=== PATIENT | male | born 1990 ===

== ENCOUNTER 2018-03-15 17:09 | Emergency (ER) | payer MEDICAID, OTHER ==
[2018-03-15 17:28] VITALS: BP 119/73; PULSE 78; RESP 18; TEMP 98; O2SAT 98
--- NOTE | 2018-03-15 18:27 | C.PDOC ---
History Of Present Illness 27-year-old male, presents to the emergency department with complaints of pain to right hand since last night. Patient states he was boxing last night, and hurt his hand. He notes taking an Aleve with minimal relief, prompting visit. Patient denies numbness/weakness, nausea/vomiting, fever, chills, or any other associated symptoms. No other complaints at this time. Time Seen by Provider: 03/15/18 17:28 Chief Complaint (Nursing): Finger,Hand,&Wrist History Per: Patient History/Exam Limitations: no limitations Past Medical History Reviewed: Historical Data, Nursing Documentation, Vital Signs Vital Signs: Last Vital Signs Temp 98 F 03/15/18 17:19 Pulse 78 03/15/18 17:19 Resp 18 03/15/18 17:19 BP 119/73 03/15/18 17:19 Pulse Ox 98 03/15/18 17:19 - Medical History PMH: Anxiety (MARIJUANA DEPENDENCE) Denies: Chronic Kidney Disease Surgical History: Hernia Repair, Tonsillectomy Family History: States: No Known Family Hx - Social History Hx Alcohol Use: Yes Hx Substance Use: No Review Of Systems Constitutional: Negative for: Fever Gastrointestinal: Negative for: Vomiting Musculoskeletal: Positive for: Hand Pain Neurological: Negative for: Weakness, Numbness Physical Exam - Physical Exam Appears: Non-toxic, No Acute Distress Skin: Warm, Dry, No Rash Head: Atraumatic Eye(s): bilateral: Normal Inspection Nose: Normal Oral Mucosa: Moist Lips: Normal Appearing Neck: Normal ROM Extremity: Tenderness, Capillary Refill (<2 seconds), No Deformity, Other (right hand +tenderness and swelling) Pulses: Left Radial: Normal, Right Radial: Normal Neurological/Psych: Oriented x3, Normal Speech ED Course And Treatment O2 Sat by Pulse Oximetry: 98 Pulse Ox Interpretation: Normal (RA) Progress Note: Hand xray is negative for fracture. Velcro wrist splint was applied by educational technologist and checked by me. Disposition - Disposition Referrals: Lindsey Walton MD [Staff Provider] - Disposition: HOME/ ROUTINE Disposition Time: 18:00 Condition: STABLE Additional Instructions: Follow up with the Hand doctor within 1-2 days without fail. Return if worsened. Prescriptions: Ibuprofen [Motrin] 600 mg PO TID #21 tab Instructions: Contusion (DC) Forms: [facility] (Korean), Work Excuse - Clinical Impression Clinical Impression: Hand contusion - Scribe Statement The provider has reviewed the documentation as recorded by the Scribe (Kasey Cannon) All medical record entries made by the Scribe were at my direction and personally dictated by me. I have reviewed the chart and agree that the record accurately reflects my personal performance of the history, physical exam, medical decision making, and the department course for this patient. I have also personally directed, reviewed, and agree with the discharge instructions and disposition.
--- NOTE | 2018-03-16 10:09 | RAD ---
PROCEDURE: Right Hand Radiographs. HISTORY: hand injury pain to 3-5 MCP and 3rd prox phalanx COMPARISON: None. FINDINGS: BONES: Bone alignment and mineralization are normal. There is no acute displaced fracture or bone destruction. There is an old fracture deformity in the 4th metacarpal. JOINTS: The joint spaces are preserved. SOFT TISSUES: Normal. OTHER FINDINGS: None. IMPRESSION: No acute displaced fracture or dislocation.
== END 2018-03-15 18:45 | disposition home or self-care (01) ==
LOC: C.ER 17:09
DX: S60.221A Contusion of right hand, initial encounter (principal); X58.XXXA Exposure to other specified factors, initial encounter; Y93.71 Activity, boxing